=== PATIENT | female | born 1995 | race Caucasian/White ===

== ENCOUNTER 2023-01-11 20:18 | Emergency (ER) | payer MEDICAID ==
[~2023-01-11] VITALS: Ht 165.1 cm; Wt 75.7 kg
[2023-01-11 20:20] VITALS: BP_SYST 160; PULSE 132; RESP 24; TEMP 99; O2SAT 99
[2023-01-11] MEDS ORDERED: LORazepam 2 MG/ML VIAL IM ONE (20:45)
[2023-01-11] MEDS ORDERED: ONDANSETRON 4 MG ODT TAB PO ONE (21:30)
[2023-01-11 22:17] VITALS: BP_SYST 123; PULSE 102; RESP 29; TEMP 98.2; O2SAT 99
== END 2023-01-11 22:17 | disposition home or self-care (01) ==
LOC: SED 20:18
DX: R06.4 Hyperventilation (principal); F41.9 Anxiety disorder, unspecified; R00.2 Palpitations; R20.2 Paresthesia of skin; Z79.899 Other long term (current) drug therapy
CPT/HCPCS: 99283; 96372; Q0162; J2060